=== PATIENT | male | born 1955 | race Caucasian/White ===

== ENCOUNTER 2021-08-29 10:29 | Emergency (ER) | payer MEDICARE, MEDICAID ==
[~2021-08-29] VITALS: Ht 182.9 cm; Wt 101.2 kg
[2021-08-29 10:30] VITALS: BP 147/89
[2021-08-29] MEDS ORDERED: KETOROLAC TROMETH 60MG/2ML VIAL IM ONE (14:00)
[2021-08-29] MEDS ORDERED: IBU600T PO (14:31)
== END 2021-08-29 14:37 | disposition home or self-care (01) ==
LOC: ER 10:29
DX: S29.011A Strain of muscle and tendon of front wall of thorax, initial encounter (principal); M79.18 Myalgia, other site; X58.XXXA Exposure to other specified factors, initial encounter; Y93.89 Activity, other specified; Y92.89 Other specified places as the place of occurrence of the external cause; Y99.8 Other external cause status
CPT/HCPCS: 71101; 93005; 96372; 99283; J1885